=== PATIENT | male | born 1955 | race Caucasian/White ===

== ENCOUNTER 2018-04-20 23:30 | Inpatient (IN) | payer BC ==
[2018-04-20] MEDS ORDERED: SODIUM CHLORIDE 0.9% 1000ML 1,000 ML IV ONE (23:49)
[2018-04-20 23:59] LABS: BASOPHILS % (AUTO) 1 % (0-3); EOSINOPHILS % (AUTO) 2 % (0-9); HEMATOCRIT 46 % (39-53); LYMPHOCYTES % (AUTO) 30.1 % (10-50); MEAN CORPUSCULAR HEMOGLOBIN 30.3 pg (27.0-32.0); MEAN CORPUSCULAR HGB CONC 32.4 gm/dl (32.0-36.0); MEAN CORPUSCULAR VOLUME 93 fL (80-100); MONOCYTES % (AUTO) 7.5 % (0-12); NEUTROPHILS % (AUTO) 59.7 % (37-80)
[2018-04-21 00:25] LABS: ALBUMIN 3.5 gm/dl (3.4-5.0); ALKALINE PHOSPHATASE 85 IU/L (46-116); ALT 24 IU/L (14-63); AST 17 IU/L (15-37); BILIRUBIN,TOTAL 0.9 mg/dl (0.2-1.0); BLOOD UREA NITROGEN 31 mg/dl (7-18); CALCIUM 8.4 mg/dl (8.5-10.1); CARBON DIOXIDE 28.3 mEq/L (21-32); CHLORIDE 105 mMol/L (98-107); CREATININE 1.31 mg/dl (0.80-1.30); GLUCOSE 190 mg/dl (74-106); MAGNESIUM 1.9 mg/dl (1.8-2.4); POTASSIUM 3.9 mMol/L (3.5-5.1); SODIUM 140 mMol/L (136-145); THYROID STIMULATING HORMONE 2.643 uIU/ml (0.358-3.740); TOTAL PROTEIN 6.6 gm/dl (6.4-8.2); TROP I < 0.017 ng/ml (0.000-0.056)
[2018-04-21 00:30] LABS: INR 2.29 (0.86-1.12)
[2018-04-21] MEDS ORDERED: MAGNESIUM SULFATE 1 GM/2 ML SOL IV ONE (00:34)
[2018-04-21] MEDS ORDERED: MAGNESIUM SULFATE 5 GM/10 ML SOL ONE (00:54)
[2018-04-21] MEDS ORDERED: SODIUM CHLORIDE 0.9% 1000ML 1,000 ML IV ONE (02:07)
[2018-04-21] MEDS ORDERED: METOPROLOL TARTRATE 5 MG/5 ML SOL IV ONE ×2 (02:08→05:41)
[2018-04-21] MEDS ORDERED: SODIUM CHLORIDE 0.9% FLUSH 10 ML SOL IV SCH (03:00)
[2018-04-21 07:51] LABS: CARBON DIOXIDE 27.4 mEq/L (21-32); CREATININE 1.12 mg/dl (0.80-1.30); POTASSIUM 4.3 mMol/L (3.5-5.1)
[2018-04-21 08:56] VITALS: BP 143/80; PULSE 129; TEMP 97.5; O2SAT 94
[2018-04-21 11:12] VITALS: RESP 18
== END 2018-04-21 10:45 | disposition short-term general hospital (02) | DRG 201 ==
LOC: ED 23:30 → ACUTE CARE 04-21 03:29
PROVIDERS: ADMIT Internal Medicine; ATTEND Internal Medicine
DX: I48.91 Unspecified atrial fibrillation (principal); Z79.01 Long term (current) use of anticoagulants; I48.2 Chronic atrial fibrillation
CPT/HCPCS: 36415; 71045; 80048; 80053; 83735; 83880; 84443; 84484; 85025; 85610; 93005; 93012; 94762; 99285; J3475; J3490